=== PATIENT | female | born 1955 | race Two or more races ===

== ENCOUNTER 2018-10-19 21:19 | Inpatient (IN) | payer MEDICARE ==
[~2018-10-19] VITALS: Ht 160 cm; Wt 60.3 kg
[2018-10-19] MEDS ORDERED: LISI10TA5 PO (22:26)
[2018-10-19] MEDS ORDERED: BUPR300T54 PO (22:27)
[2018-10-19] MEDS ORDERED: MAGNESIUM HYDROXIDE 30 ML UDC PO PRN (22:30)
[2018-10-19] MEDS ORDERED: ESCI10TA PO (22:30)
[2018-10-19] MEDS ORDERED: ACETAMINOPHEN 325 MG TABLET PO PRN (22:30)
[2018-10-19] MEDS ORDERED: MAG HYDROX/AL HYDROX/SIMETH 30 ML UDC PO PRN (22:30)
[2018-10-19] MEDS ORDERED: AMPH30CA10 PO (22:31)
[2018-10-19] MEDS ORDERED: LORA-259 PO (22:32)
[2018-10-19] MEDS: LORAZEPAM 0.5 MG TABLET PO PRN (23:08)
--- NOTE | 2018-10-19 23:38 | NUR ---
ADMITTED THIS 63 YEARS OLD MALE FROM [facility] PATIENT IS VOLUNTARY CAME FOR SUICIDAL THOUGHT LIVES IN [place] PATIENT SIGN ALL THE CONSENT PAPER, PATIENT IS ALERT, ORIENTED X 4 AMBULATORY TO BATHROOM, DENIES ANY SI/HI AT THIS TIME, PATIENT "STATED SHE DOES NOT WANT ANY VISITOR ,SHE DOES NOT WANT ANY PHONE CALL FROM ANY BODY" PLEASE DON,T GIVE ANY INFORMATION TO ANY BODY WILL ENDORSE TO THE ONCOMING NURSE FOR CONTINUES OF CARE.
[2018-10-20] MEDS: ZOLPIDEM TARTRATE 5 MG TABLET PO PRN (00:46)
[2018-10-20 08:00] VITALS: BP 137/67
[2018-10-20 08:27] LABS: BASOPHILS % (AUTO) 0.6 % (0.0-2.0); EOSINOPHILS % (AUTO) 2.9 % (0.0-6.0); HEMATOCRIT 33 % (33-45); LYMPHOCYTES # (AUTO) 1.5 /CMM (0.8-4.8); LYMPHOCYTES % (AUTO) 29.3 % (20.0-44.0); MEAN CORPUSCULAR HGB CONC 33 g/dl (31.0-36.0); MEAN CORPUSCULAR VOLUME 86 fL (82-100); MONOCYTES # (AUTO) 0.4 /CMM (0.1-1.30); MONOCYTES % (AUTO) 8.6 % (2.0-12.0); NEUTROPHILS # (AUTO) 2.9 /CMM (1.8-8.9); NEUTROPHILS % (AUTO) 58.6 % (43.0-81.0); PLATELET COUNT (AUTO) 169 /CMM (150-450); RED BLOOD CELL COUNT(AUTO) 3.84 MIL/uL (4.0-5.2)
[2018-10-20 08:34] LABS: BILIRUBIN,TOTAL 0.5 mg/dL (0.2-1.0); CALCIUM, SERUM 8.1 mg/dL (8.5-10.1); CREATININE 1.5 mg/dL (0.6-1.3); TOTAL PROTEIN, SERUM 5.2 g/dL (6.4-8.2)
[2018-10-20] MEDS: CEPHALEXIN MONOHYDRATE 500 MG CAPSULE PO SCH ×2 (09:58→21:05)
[2018-10-20] MEDS: LORAZEPAM 0.5 MG TABLET PO PRN ×2 (09:59→21:29)
[2018-10-20] MEDS: LISINOPRIL (10MG) 10 MG TABLET PO SCH (10:00)
[2018-10-20] MEDS: BUPROPION XL 150 MG TAB.ER.24 PO SCH (13:00)
--- NOTE | 2018-10-20 13:44 | NUR ---
Initial Discharge Plan: Pt stated that she is currently homeless. Pt stated that she would like placement options to be presented to her. Pt did not seem content with a penitentiary facility placement so SW will also provide independent living options. SW will work with both the pt and the MD regarding appropriate discharge planning. SW will form a safe and proper discharge.
--- NOTE | 2018-10-20 13:45 | NUR ---
Pt stated that she did not want her sister, Briana ([phone]), who was listed on her face sheet to be contacted due to the lack of involvement in her life.
[2018-10-20 16:00] VITALS: BP 143/79
[2018-10-20 18:09] LABS: APPEARANCE,URINE SL CLOUDY (CLEAR); BILIRUBIN,URINE NEGATIVE (NEGATIVE); BLOOD, URINE NEGATIVE Ery/uL (NEGATIVE); COLOR,URINE YELLOW (YELLOW); KETONES,URINE NEGATIVE (NEGATIVE); LEUKOCYTE ESTERASE ,URINE 2+ (NEGATIVE); NITRITE, URINE POSITIVE (NEGATIVE); PROTEIN,URINE NEGATIVE (NEGATIVE); UGLUCOSE NEGATIVE (NEGATIVE); UROBILINOGEN,URINE 0.2 EU/dL (0.2)
[2018-10-20 18:30] LABS: BACTERIA,URINE Many /HPF (None Seen); RBC,URINE 0-2 /HPF (0-2); SQUAMOUS EPITHELIAL CELL,UR Few /HPF (None Seen); WBC,URINE 21-50 /HPF (0-3)
[2018-10-20 20:00] VITALS: BP 157/77
[2018-10-21 08:00] VITALS: BP 122/67
[2018-10-21] MEDS: ARIPIPRAZOLE 2 MG TABLET PO SCH (08:51)
[2018-10-21] MEDS: LISINOPRIL (10MG) 10 MG TABLET PO SCH (08:51)
[2018-10-21] MEDS: BUPROPION XL 150 MG TAB.ER.24 PO SCH (08:51)
[2018-10-21] MEDS: CEPHALEXIN MONOHYDRATE 500 MG CAPSULE PO SCH ×2 (08:51→21:58)
[2018-10-21] MEDS: LORAZEPAM 0.5 MG TABLET PO PRN (11:02)
[2018-10-21 16:00] VITALS: BP 134/64
[2018-10-21] MEDS: hydrOXYzine PAMOATE 25 MG CAPSULE PO PRN (18:35)
[2018-10-21 20:00] VITALS: BP 150/81
[2018-10-21] MEDS: ZOLPIDEM TARTRATE 5 MG TABLET PO PRN (21:58)
[2018-10-22 07:30] LABS: BASOPHILS % (AUTO) 0.5 % (0.0-2.0); EOSINOPHILS % (AUTO) 3.3 % (0.0-6.0); HEMATOCRIT 35 % (33-45); LYMPHOCYTES # (AUTO) 1.4 /CMM (0.8-4.8); LYMPHOCYTES % (AUTO) 24.5 % (20.0-44.0); MEAN CORPUSCULAR HGB CONC 34 g/dl (31.0-36.0); MEAN CORPUSCULAR VOLUME 85 fL (82-100); MONOCYTES # (AUTO) 0.4 /CMM (0.1-1.30); NEUTROPHILS # (AUTO) 3.5 /CMM (1.8-8.9); NEUTROPHILS % (AUTO) 63.7 % (43.0-81.0); PLATELET COUNT (AUTO) 176 /CMM (150-450); RED BLOOD CELL COUNT(AUTO) 4.11 MIL/uL (4.0-5.2); WHITE BLOOD COUNT (AUTO) 5.5 K/uL (4.3-11.0)
[2018-10-22 07:40] LABS: CALCIUM, SERUM 8.7 mg/dL (8.5-10.1); CREATININE 1.4 mg/dL (0.6-1.3); MAGNESIUM 1.6 mg/dL (1.8-2.4); PHOSPHORUS 3.4 mg/dL (2.5-4.9); POTASSIUM 4.2 mmol/L (3.5-5.1)
[2018-10-22 08:00] VITALS: BP 133/72
[2018-10-22] MEDS: BUPROPION XL 150 MG TAB.ER.24 PO SCH (08:33)
[2018-10-22] MEDS: ARIPIPRAZOLE 2 MG TABLET PO SCH (08:33)
[2018-10-22] MEDS: CEPHALEXIN MONOHYDRATE 500 MG CAPSULE PO SCH ×2 (08:33→20:34)
[2018-10-22] MEDS: LISINOPRIL (10MG) 10 MG TABLET PO SCH (08:34)
[2018-10-22] MEDS ORDERED: MAGNESIUM OXIDE 400 MG TABLET PO ONE (09:30)
[2018-10-22] MEDS: hydrOXYzine PAMOATE 25 MG CAPSULE PO PRN ×2 (12:16→20:34)
[2018-10-22 16:00] VITALS: BP 131/71
[2018-10-22] MEDS: LORAZEPAM 0.5 MG TABLET PO PRN (18:33)
[2018-10-22 20:00] VITALS: BP 148/69
[2018-10-22] MEDS: ZOLPIDEM TARTRATE 5 MG TABLET PO PRN (21:37)
[2018-10-23] MEDS: hydrOXYzine PAMOATE 25 MG CAPSULE PO PRN ×3 (04:47→17:31)
[2018-10-23 08:00] VITALS: BP 145/93
[2018-10-23] MEDS: CEPHALEXIN MONOHYDRATE 500 MG CAPSULE PO SCH ×2 (09:17→20:57)
[2018-10-23] MEDS: BUPROPION XL 150 MG TAB.ER.24 PO SCH (09:17)
[2018-10-23] MEDS: LORAZEPAM 0.5 MG TABLET PO PRN ×2 (09:19→22:06)
[2018-10-23] MEDS: ARIPIPRAZOLE 2 MG TABLET PO SCH (09:19)
[2018-10-23] MEDS: LISINOPRIL (10MG) 10 MG TABLET PO SCH (09:20)
--- NOTE | 2018-10-23 13:00 | NUR ---
GPS RN INITIAL NOTES Received report at bedside from Registry Nurse. Will continue to monitor and assess patient for safety and behavior.
[2018-10-23 16:00] VITALS: BP 148/72
[2018-10-23 20:00] VITALS: BP 153/78
[2018-10-23] MEDS: ZOLPIDEM TARTRATE 5 MG TABLET PO PRN (21:25)
[2018-10-24] MEDS: hydrOXYzine PAMOATE 25 MG CAPSULE PO PRN ×3 (01:44→23:07)
[2018-10-24 08:00] VITALS: BP 138/76
[2018-10-24] MEDS: BUPROPION XL 150 MG TAB.ER.24 PO SCH (08:46)
[2018-10-24] MEDS: CEPHALEXIN MONOHYDRATE 500 MG CAPSULE PO SCH (08:47)
[2018-10-24] MEDS: LISINOPRIL (10MG) 10 MG TABLET PO SCH (08:47)
[2018-10-24] MEDS: ARIPIPRAZOLE 2 MG TABLET PO SCH (08:47)
[2018-10-24] MEDS: LORAZEPAM 0.5 MG TABLET PO PRN ×2 (09:47→21:48)
--- NOTE | 2018-10-24 09:47 | NUR ---
GPS RN NOTE: PATIENT C/O ANXIETY M/B VERBALIZATION OF ANXIETY, PANIC ATTACK, AGITATION, CRYING AND REQUESTING TO HAVE HER ATIVAN. ATIVAN GIVEN ORDERED. WILL CONTINUE TO MONITOR [id number] OFRSAFETY
--- NOTE | 2018-10-24 13:00 | NUR ---
GPS RN NOTE: LABS SEEN BY DR. BRUMFIELD WITH ORDER TO ENCOURAGE FLUID TO PATIENT NOTED AND CARRIED OUT. WILL CONTINUE TO MONITOR [id number] OFRSAFETY
[2018-10-24 16:00] VITALS: BP 121/70
[2018-10-24] MEDS ORDERED: FOSFOMYCIN TROMETHAMINE 3 G/PKT PACKET PO ONE (16:00)
--- NOTE | 2018-10-24 19:30 | NUR ---
GPS RN NOTE, RECEIVED PATIENT AWAKE AND IN ROOM NO S/S OR COMPLAINTS OF PAIN AT THIS TIME. PATIENT IS DISPLAYING NO S/S OF APPARENT DISTRESS AT THIS TIME. PATIENT BREATHING IS UNLABORED WITH EQUAL RISE AND FALL OF THE CHEST. PATIENT IS ALERT AND ORIENTED X 3 ON ROOM AIR WITH A SPO2 OF 97%. PATIENT IS MED COMPLIANT, DISORGANIZED, ANXIOUS, COOPERATIVE, AND NEEDS REORIENTATION. PATIENT DENIES SUICIDE AND HOMICIDAL IDEATIONS AT THIS TIME. PATIENT ASSISTED WITH TURNING AND REPOSITIONING Q2HR AND PRN FOR COMFORT AND CIRCULATION. PATIENT HAS NO NEEDS AT THIS TIME. PATIENT EDUCATED ON THE USE OF THE CALL MEDINA. PATIENT BED SIDE RAILS ARE UP X 2 FOR SAFETY, BED IS LOCKED AND LOW. WILL CONTINUE TO MONITOR AND MAINTAIN SAFETY Q15 MIN WITH THE HELP OF STAFF.
[2018-10-24 19:56] VITALS: BP 129/64
--- NOTE | 2018-10-24 21:48 | NUR ---
GPS RN NOTE, PATIENT HAS A COMPLAINT OF FEELING ANXIOUS AND IS REQUESTING ATIVAN AT THIS TIME. PATIENT VITAL SIGNS ARE STABLE. GAVE ATIVAN 1MG PO Q12HR PRN ORDERED. WILL REASSESS FOR ANXIETY AND I WILL CONTINUE TO MONITOR THIS PATIENT.
[2018-10-24] MEDS ORDERED: HYDR-3026 PO (22:19)
--- NOTE | 2018-10-24 23:07 | NUR ---
GPS RN NOTE, PATIENT HAS A COMPLAINT OF FEELING ITCHY AND IS REQUESTING VISTARIL AT THIS TIME. PATIENT VITAL SIGNS ARE STABLE. GAVE VISTARIL 50 MG PO Q8HR PRN ORDERED. WILL REASSESS PATIENT AND I WILL CONTINUE TO MONITOR THIS PATIENT.
[2018-10-24] MEDS: ZOLPIDEM TARTRATE 5 MG TABLET PO PRN (23:51)
--- NOTE | 2018-10-24 23:52 | NUR ---
GPS RN NOTE, PATIENT HAS A COMPLAINT OF NOT BEING ABLE TO SLEEP AND IS REQUESTING AMBIEN AT THIS TIME. PATIENT VITAL SIGNS ARE STABLE. GAVE AMBIEN 5MG PO HS PRN ORDERED. WILL REASSESS FOR INSOMNIA AND I WILL CONTINUE TO MONITOR THIS PATIENT.
[2018-10-25 08:00] VITALS: BP 116/58
[2018-10-25] MEDS: LISINOPRIL (10MG) 10 MG TABLET PO SCH (09:00)
[2018-10-25] MEDS: ARIPIPRAZOLE 5 MG TABLET PO SCH (09:09)
[2018-10-25] MEDS: BUPROPION XL 150 MG TAB.ER.24 PO SCH (09:09)
[2018-10-25] MEDS: hydrOXYzine PAMOATE 25 MG CAPSULE PO PRN ×2 (09:19→18:12)
[2018-10-25] MEDS: LORAZEPAM 0.5 MG TABLET PO PRN ×2 (10:48→23:24)
[2018-10-25 16:00] VITALS: BP 140/62
--- NOTE | 2018-10-25 16:33 | NUR ---
JATINDER called the pt's mother, Kanika ([phone]), and informed her about the discharge plan for the pt to be in a SNF temporarily until she receives her check for November and can arrange a different living situation.
--- NOTE | 2018-10-25 18:13 | NUR ---
MED. FOR ITCHING WITH VISTARIL.
[2018-10-25 20:18] VITALS: BP 156/79
[2018-10-25] MEDS: ZOLPIDEM TARTRATE 5 MG TABLET PO PRN ×2 (21:42→21:43)
[2018-10-26] MEDS: hydrOXYzine PAMOATE 25 MG CAPSULE PO PRN ×3 (02:17→18:51)
[2018-10-26 08:00] VITALS: BP 128/64
[2018-10-26] MEDS: BUPROPION XL 150 MG TAB.ER.24 PO SCH (09:26)
[2018-10-26] MEDS: ARIPIPRAZOLE 5 MG TABLET PO SCH (09:26)
[2018-10-26] MEDS: LISINOPRIL (10MG) 10 MG TABLET PO SCH (09:27)
--- NOTE | 2018-10-26 10:39 | NUR ---
MEDICATED FOR ITCHING WITH VISTARIL 50 MG.
--- NOTE | 2018-10-26 13:01 | NUR ---
JATINDER faxed a referral to the Kaushal, Industrial Therapist of [facility], to the fax number: [phone].
--- NOTE | 2018-10-26 13:01 | NUR ---
SALVADOR ([phone]) from [facility] contacted the and stated that the pt no longer has any Medicare days available and therefore the facility cannot accept him.
[2018-10-26] MEDS: LORAZEPAM 0.5 MG TABLET PO PRN (13:30)
--- NOTE | 2018-10-26 13:35 | NUR ---
GIVEN 1 MG ATIVAN PER PRN ORDER.PT. STATES NERVOUS.
[2018-10-26 16:00] VITALS: BP 134/68
--- NOTE | 2018-10-26 19:03 | NUR ---
just medicated again with vistaril for itching.
[2018-10-26 20:42] VITALS: BP 148/75
[2018-10-26] MEDS: ZOLPIDEM TARTRATE 5 MG TABLET PO PRN (21:33)
[2018-10-27] MEDS: LORAZEPAM 0.5 MG TABLET PO PRN ×2 (01:13→13:31)
[2018-10-27 08:00] VITALS: BP 124/67
[2018-10-27] MEDS: ARIPIPRAZOLE 5 MG TABLET PO SCH (08:21)
[2018-10-27] MEDS: BUPROPION XL 150 MG TAB.ER.24 PO SCH (08:22)
[2018-10-27] MEDS: LISINOPRIL (10MG) 10 MG TABLET PO SCH (08:23)
[2018-10-27] MEDS: hydrOXYzine PAMOATE 25 MG CAPSULE PO PRN ×2 (08:54→18:10)
--- NOTE | 2018-10-27 13:33 | NUR ---
RN NOTE: PRN ATIVAN 1G GIVEN FOR ANXIETY. STATES THAT SHE IS FEELING ANXIOUS. WILL RE-ASSESS ANXIETY.
[2018-10-27 16:00] VITALS: BP 124/71
--- NOTE | 2018-10-27 18:35 | NUR ---
RN NOTE: Visatril 50mg PO was given PRN for itching @ 0854 & 1810. Both times, medication was effective and patient had no more complaints of bodily itching. Continue to monitor patient for itch.
[2018-10-27 20:00] VITALS: BP 139/67
[2018-10-27] MEDS: ZOLPIDEM TARTRATE 5 MG TABLET PO PRN (21:04)
[2018-10-28] MEDS: LORAZEPAM 0.5 MG TABLET PO PRN ×2 (03:43→16:04)
--- NOTE | 2018-10-28 03:44 | NUR ---
FEELING ANXIOUS, REQUESTING FOR ATIVAN, 1 MG PO GIVEN.
[2018-10-28 08:00] VITALS: BP 120/67
[2018-10-28] MEDS: ARIPIPRAZOLE 5 MG TABLET PO SCH (08:24)
[2018-10-28] MEDS: LISINOPRIL (10MG) 10 MG TABLET PO SCH (08:25)
[2018-10-28] MEDS: BUPROPION XL 150 MG TAB.ER.24 PO SCH (08:25)
[2018-10-28] MEDS: hydrOXYzine PAMOATE 25 MG CAPSULE PO PRN ×2 (08:44→21:45)
--- NOTE | 2018-10-28 14:04 | NUR ---
SALVADOR ([phone]) from [facility] contacted the SW and stated that they are willing to accept the pt. SW informed him that the discharge is set for Wednesday.
--- NOTE | 2018-10-28 14:05 | NUR ---
JATINDER called the pt's mother, Kanika ([phone]), and informed her that the pt is going to be discharged to [facility] on Wednesday.
--- NOTE | 2018-10-28 15:26 | NUR ---
SW provided the pt with homeless resources and the pt signed the homeless waiver.
[2018-10-28 16:18] VITALS: BP 125/70
[2018-10-28 20:00] VITALS: BP 113/51
[2018-10-28] MEDS: ZOLPIDEM TARTRATE 5 MG TABLET PO PRN (22:27)
[2018-10-29] MEDS: LORAZEPAM 0.5 MG TABLET PO PRN ×2 (04:47→17:08)
[2018-10-29 08:00] VITALS: BP 119/64
[2018-10-29] MEDS: BUPROPION XL 150 MG TAB.ER.24 PO SCH (08:45)
[2018-10-29] MEDS: LISINOPRIL (10MG) 10 MG TABLET PO SCH (08:46)
[2018-10-29] MEDS: ARIPIPRAZOLE 5 MG TABLET PO SCH (08:46)
[2018-10-29] MEDS: hydrOXYzine PAMOATE 25 MG CAPSULE PO PRN ×2 (11:41→20:46)
[2018-10-29 16:00] VITALS: BP 116/55
[2018-10-29 20:00] VITALS: BP 125/59
[2018-10-30] MEDS: ZOLPIDEM TARTRATE 5 MG TABLET PO PRN ×2 (01:59→21:33)
[2018-10-30] MEDS: LORAZEPAM 0.5 MG TABLET PO PRN ×2 (06:39→18:48)
[2018-10-30 08:00] VITALS: BP 129/72
[2018-10-30] MEDS: LISINOPRIL (10MG) 10 MG TABLET PO SCH (08:15)
[2018-10-30] MEDS: ARIPIPRAZOLE 5 MG TABLET PO SCH (08:15)
[2018-10-30] MEDS: BUPROPION XL 150 MG TAB.ER.24 PO SCH (08:15)
[2018-10-30] MEDS: hydrOXYzine PAMOATE 25 MG CAPSULE PO PRN ×2 (13:03→21:33)
--- NOTE | 2018-10-30 13:03 | NUR ---
RN NOTE: Visatril 50mg PO was given PRN for itching Continue to monitor patient for itch.
[2018-10-30 16:00] VITALS: BP 123/66
--- NOTE | 2018-10-30 18:48 | NUR ---
RN NOTE: PRN ATIVAN 1MG GIVEN FOR ANXIETY. STATES THAT SHE IS FEELING ANXIOUS.
[2018-10-30 20:03] VITALS: BP 126/63
[2018-10-30] MEDS: MICONAZOLE NITRATE 2% CREAM 1 EA TUBE TP SCH (20:16)
[2018-10-31] MEDS: LORAZEPAM 0.5 MG TABLET PO PRN ×2 (06:48→18:59)
[2018-10-31 08:00] VITALS: BP 118/74
[2018-10-31] MEDS: BUPROPION XL 150 MG TAB.ER.24 PO SCH (08:39)
[2018-10-31] MEDS: LISINOPRIL (10MG) 10 MG TABLET PO SCH (08:39)
[2018-10-31] MEDS: ARIPIPRAZOLE 5 MG TABLET PO SCH (08:39)
[2018-10-31] MEDS: hydrOXYzine PAMOATE 25 MG CAPSULE PO PRN (11:14)
--- NOTE | 2018-10-31 15:29 | NUR ---
insulation worker furnace installer received call from [facility] on Wednesday notifying social workers that there are currently no beds available until tomorrow November 01. insulation worker furnace installer reached out to pts mother mother, Kanika ([phone]), and informed her that the pt is going to be discharged to on November 01 at 2:00pm. insulation worker furnace installer reached out to ambulance and updated date and time, nursing staff aware.
[2018-10-31 16:00] VITALS: BP 123/63
[2018-10-31 20:29] VITALS: BP 117/77
[2018-10-31] MEDS: MICONAZOLE NITRATE 2% CREAM 1 EA TUBE TP SCH (20:42)
[2018-10-31] MEDS: ZOLPIDEM TARTRATE 5 MG TABLET PO PRN (21:55)
--- NOTE | 2018-10-31 21:55 | NUR ---
RN NOTES, PATIENT COMPLAINING OF INABILITY TO SLEEPING AND REQUESTING AMBIEN, AMBIEN ADMINISTERED ORDERED, WILL CONTINUE TO MONITOR CLOSELY.
[2018-11-01] MEDS: hydrOXYzine PAMOATE 25 MG CAPSULE PO PRN ×2 (04:14→13:03)
[2018-11-01 08:00] VITALS: BP 114/68
[2018-11-01] MEDS: BUPROPION XL 150 MG TAB.ER.24 PO SCH (08:12)
[2018-11-01] MEDS: ARIPIPRAZOLE 5 MG TABLET PO SCH (08:12)
[2018-11-01] MEDS: LORAZEPAM 0.5 MG TABLET PO PRN (08:12)
--- NOTE | 2018-11-01 08:12 | NUR ---
medicated for nervousness with ativan.
[2018-11-01 08:13] VITALS: BP_SYST 114
[2018-11-01] MEDS: LISINOPRIL (10MG) 10 MG TABLET PO SCH (08:13)
--- NOTE | 2018-11-01 13:03 | NUR ---
given vistaril for itching.
--- NOTE | 2018-11-01 14:18 | NUR ---
discharged to facility,denies suicidal or homicidal ideation.
--- NOTE | 2018-11-01 14:19 | NUR ---
report called to anupam garvey at facility.ambulance drivers given report.belonging sheet signed along with other sheets.taken via amb. to facility.
--- NOTE | 2018-11-01 15:37 | NUR ---
JATINDER called the pts mother, Kanika ([phone]), and notified her of the placement location and informed her that the pt was discharged today.
--- NOTE | 2018-11-01 15:38 | NUR ---
Initial Discharge Plan: Pt was discharged to [facility] located at [address] [place] [address] ([phone]). Pt was transported via [facility] (Trip #[id number]) at 2PM. Pts mother, Kanika ([phone]), was notified of the placement. Upon discharge, the pt appeared to be in a euthymic mood and presented with a pleasant and calm affect. Pt denied both suicidal and homicidal ideation as well as auditory and visual hallucinations. Pt stated that she felt much better and was content about being admitted to the hospital even though she never wants to come back. Pt signed the homeless checklist at the time of discharge and was provided with homeless senior living referrals as well. Pt will be under the care of psychiatrist, Dr. Buckner, [place] at [address] [place] [address]; and her oval or circular glass cutter, Dr. Rios, located at [address] [place] [address]; .
[2018-11-01 16:00] VITALS: BP 114/59
== END 2018-11-01 14:20 | DRG 885 ==
LOC: GPS 21:19
PROVIDERS: ADMIT Psychiatry & Neurology Psychiatry; ATTEND Nurse Practitioner Acute Care
DX: F33.3 Major depressive disorder, recurrent, severe with psychotic symptoms (principal); N17.0 Acute kidney failure with tubular necrosis; B95.2 Enterococcus as the cause of diseases classified elsewhere; N39.0 Urinary tract infection, site not specified; R45.851 Suicidal ideations; E44.0 Moderate protein-calorie malnutrition; Z88.0 Allergy status to penicillin; I10 Essential (primary) hypertension; F90.9 Attention-deficit hyperactivity disorder, unspecified type; Z59.0 Homelessness; E88.09 Other disorders of plasma-protein metabolism, not elsewhere classified; Z68.23 Body mass index [BMI] 23.0-23.9, adult; E83.42 Hypomagnesemia; B37.9 Candidiasis, unspecified
CPT/HCPCS: 36415; 80048-TC; 80053-TC; 80061-TC; 80305; 81000-TC; 83735-TC; 84100-TC; 85025-TC; 87081-TC; 87086-TC; 87186-TC; Q0177

== ENCOUNTER 2019-01-11 22:51 | Inpatient (IN) | payer MEDICARE, MEDICAID ==
[~2019-01-11] VITALS: Ht 162.6 cm; Wt 69.4 kg
[~2019-01-11 22:51] MED LIST: AMPH30CA10 PO; BUPR300T54 PO; ESCI10TA PO; HYDR-3026 PO; LISI10TA5 PO; LORA-259 PO
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
[2019-01-11 23:30] LABS: BASOPHILS % (AUTO) 0.6 % (0.0-2.0); EOSINOPHILS % (AUTO) 2.7 % (0.0-6.0); HEMATOCRIT 34 % (33-45); HEMOGLOBIN 11.4 g/dL (11.5-14.8); LYMPHOCYTES % (AUTO) 24.4 % (20.0-44.0); MEAN CORPUSCULAR HGB CONC 34 g/dl (31.0-36.0); MEAN CORPUSCULAR VOLUME 87 fL (82-100); NEUTROPHILS % (AUTO) 62.3 % (43.0-81.0); PLATELET COUNT (AUTO) 191 /CMM (150-450); WHITE BLOOD COUNT (AUTO) 7.9 K/uL (4.3-11.0)
[2019-01-11 23:31] LABS: BASOPHILS # (AUTO) 0.1 /CMM (0.0-0.2); LYMPHOCYTES # (AUTO) 1.9 /CMM (0.8-4.8); MONOCYTES # (AUTO) 0.8 /CMM (0.1-1.30); NEUTROPHILS # (AUTO) 4.9 /CMM (1.8-8.9)
[2019-01-11 23:37] LABS: CALCIUM, SERUM 8.1 mg/dL (8.5-10.1); CREATININE 1.6 mg/dL (0.6-1.3); POTASSIUM 4.1 mmol/L (3.5-5.1)
[2019-01-11 23:48] LABS: ALBUMIN 3.3 g/dL (3.4-5.0); BILIRUBIN,DIRECT 0.1 mg/dL (0.0-0.2); BILIRUBIN,TOTAL 0.3 mg/dL (0.2-1.0)
[2019-01-11] MEDS ORDERED: MORPHINE SULFATE INJ 2 MG/ML DISP.SYRIN ONE (23:50)
[2019-01-11] MEDS ORDERED: ONDANSETRON HCL/PF 4 MG/2 ML VIAL ONE (23:50)
[2019-01-12] MEDS ORDERED: ONDANSETRON HCL/PF - ER 4 MG/2 ML VIAL IV ONE
[2019-01-12] MEDS ORDERED: MORPHINE SULFATE INJ 2 MG/ML DISP.SYRIN IV ONE
--- NOTE | 2019-01-12 00:05 | NUR ---
URINE COLLECTED AND SENT TO LAB
[2019-01-12 00:08] LABS: APPEARANCE,URINE Clear (CLEAR); BILIRUBIN,URINE Negative (NEGATIVE); BLOOD, URINE Negative Ery/uL (NEGATIVE); COLOR,URINE Yellow (YELLOW); KETONES,URINE Negative (NEGATIVE); LEUKOCYTE ESTERASE ,URINE Small (NEGATIVE); NITRITE, URINE Negative (NEGATIVE); PH,URINE 5.5 (5.0-8.0); PROTEIN,URINE Negative (NEGATIVE); UGLUCOSE Negative (NEGATIVE); UROBILINOGEN,URINE 0.2 EU/dL (0.2)
--- NOTE | 2019-01-12 00:14 | NUR ---
CALLED RADIOLOGY FOR CT, PT IS READY
[2019-01-12 00:29] LABS: BACTERIA,URINE Few /HPF (None Seen); RBC,URINE 0-2 /HPF (0-2); SQUAMOUS EPITHELIAL CELL,UR Few /HPF (None Seen); WBC,URINE 21-50 /HPF (0-3)
--- NOTE | 2019-01-12 01:01 | NUR ---
PT REPORTED HAVING PAIN AGAIN. MD AWARE. HOLD PAIN MED FOR NOW.
[2019-01-12] MEDS ORDERED: MEROPENEM 500 MG VIAL IV ONE (01:55)
[2019-01-12] MEDS ORDERED: HYDROMORPHONE 1 MG/1 ML DISP.SYRIN ONE (01:55)
[2019-01-12] MEDS ORDERED: MEROPENEM 500 MG in IV NS 0.9% 50 ML IV ONE (02:00)
[2019-01-12] MEDS ORDERED: IV NS 0.9% 1,000 ML BAG IV ONE (02:00)
[2019-01-12] MEDS ORDERED: HYDROMORPHONE INJ 0.5 MG/0.5 ML SYRINGE IV ONE (02:00)
--- NOTE | 2019-01-12 02:18 | NUR ---
CALLED [facility] FOR PANEL ADMISSION. WAITING FOR MOTOR ASSEMBLER RODRIGUEZ TO BACK.
--- NOTE | 2019-01-12 02:39 | NUR ---
CALLED RN SUP FOR MS BED
--- NOTE | 2019-01-12 02:51 | NUR ---
PT ASSIGNED TO [facility] [id number]
[2019-01-12] MEDS ORDERED: MAGNESIUM HYDROXIDE 30 ML UDC PO PRN (03:00)
[2019-01-12] MEDS ORDERED: MAG HYDROX/AL HYDROX/SIMETH 30 ML UDC PO PRN (03:00)
[2019-01-12] MEDS ORDERED: ACETAMINOPHEN 325 MG TABLET PO PRN (03:00)
[2019-01-12] MEDS ORDERED: HYDROCODONE/APAP 5/325MG 1 EACH TABLET PO PRN (03:00)
[2019-01-12] MEDS ORDERED: Z GUARD REMEDY 2 OZ OINT TP PRN (03:00)
[2019-01-12] MEDS ORDERED: ONDANSETRON HCL/PF 4 MG/2 ML VIAL IVP PRN (03:00)
[2019-01-12] MEDS ORDERED: MEROPENEM 500 MG in IV NS 0.9% 50 ML IV SCH (03:00)
[2019-01-12] MEDS ORDERED: MORPHINE SULFATE INJ 2 MG/ML DISP.SYRIN IV PRN (03:00)
--- NOTE | 2019-01-12 03:02 | NUR ---
REPORT GIVEN TO COOPER BLACKWELL FOR YONG. PT GOING TO 304-2
--- NOTE | 2019-01-12 03:25 | NUR ---
PT BEING TRANSPORTED TO UNIT WITH EMT AT BEDSIDE ON WHEELCHAIR. NAD NOTED UPON TRANSFER. PT IN STABLE CONDITION
[2019-01-12 03:30] VITALS: BP 100/55
--- NOTE | 2019-01-12 03:30 | NUR ---
MS RESEARCH AND DEVELOPMENT TESTER INITIAL NOTES ADMIT PT FROM ER VIA JOEL ACCOMPANIED BY ER NURSE . DX OF PYELONEPHRITIS. PT IS AWAKE AND ALERT, AMBULATORY. ORIENTED WHERE SHE AT AND HOW TO USED THE CALL LIGHT SYSTEM. DENIES ANY N/V BUT COMPLAINING OF PAIN ON HER RIGHT LOWER BACK .NO SIGNS OF ANY DISTRESS NOTED. SKIN WARM AND DRY TOUCH. VITAL SIGNS WITHIN NORMAL LIMIT. OFFERED SOME SNACKS OR DRINKS BUT SHE ONLY REQUESTED HAVE SOME WATER. ASSESSMENT DONE AND RECORDED. AND KEPT HER WARM AND COMFORTABLE AT ALL TIMES. WILL CONTINUE MONITORING. PLACE CALL LIGHT AT REACH.
[2019-01-12 03:48] VITALS: BP 100/55
[2019-01-12] MEDS: IV NS 0.9% 1,000 ML IV PRN (06:00)
--- NOTE | 2019-01-12 06:47 | NUR ---
MS RESIDENTIAL BUILDER CLOSING NOTES PT BACK TO SLEEP AFTER USED THE RESTROOM. NOT IN ANY DISTRESS NOTED. KEPT HER WARM AND COMFORTABLE AT ALL TIMES. IVF NS AT 75 ML/HR INFUSING ON HER LEFT AC GAUGE 20 . KEPT HER WARM AND COMFORTABLE AT ALL TIMES. PLACE CALL LIGHT AT REACH. ENDORSE TO AM NURSE FOR CONTINUITY OF CARE.
--- NOTE | 2019-01-12 07:34 | NUR ---
RN OPENING NOTE PT WAS RECEIVED IN BED AT LOWEST AND LOCKED POSITION WITH SIDE RAILS UP X2, A/O X4 BREATHING EVEN AND UNLABORED ON RA, NO CURRENT COMPLAINTS OF DISTRESS OR PAIN NOTED, IV IS PATENT AND INTACT WITH IVF RUNNING, SAFETY PRECAUTIONS IN PLACE, CALL LIGHT WITHIN REACH, WILL MONITOR PT ACCORDINGLY
[2019-01-12] MEDS ORDERED: BISA10SU11 RC (07:48)
[2019-01-12] MEDS ORDERED: HYDR50CA PO (07:48)
[2019-01-12] MEDS ORDERED: ARIP5TAB10 PO (07:48)
[2019-01-12] MEDS ORDERED: MAGN400O6 PO (07:48)
[2019-01-12] MEDS ORDERED: NA P133E RC (07:48)
[2019-01-12] MEDS ORDERED: ACET-868 PO (07:48)
[2019-01-12 08:00] VITALS: BP 97/49
[2019-01-12] MEDS ORDERED: HYDROMORPHONE INJ 0.5 MG/0.5 ML SYRINGE IV PRN (13:00)
[2019-01-12] MEDS: MEROPENEM 1 G in IV NS 0.9% 100 ML IV SCH (13:34)
[2019-01-12] MEDS: HYDROMORPHONE 1 MG/1 ML DISP.SYRIN IV PRN ×3 (14:17→22:39)
[2019-01-12 16:00] VITALS: BP 99/58
--- NOTE | 2019-01-12 18:14 | NUR ---
RN CLOSING NOTE PT IN BED AT LOWEST AND LOCKED POSITION WITH SIDE RAILS UP X2, A/O X4 BREATHING EVEN AND UNLABORED ON RA WITH NO CURRENT COMPLAINTS OF DISTRESS OR PAIN, IV IS PATENT AND INTACT WITH IVF RUNNING, PATIENT IS AMBULATORY MAKES NEEDS KNOWN, SAFETY PRECAUTIONS IN PLACE, CALL LIGHT WITHIN REACH, ALL NEEDS ATTENDED TO, WILL ENDORSE TO PROJECT ARCHITECT RN FOR YONG.
--- NOTE | 2019-01-12 19:44 | NUR ---
RN MS OPENING NOTES RECEIVED PATIENT IN BED AWAKE, ALERT AND ORIENTED X4, VERBALLY RESPONSIVE, ABLE TO MAKE NEEDS KNOWN. ON THE PHONE. BREATHING EVEN AND UNLABORED. NO SOB NOTED. TOLERATING ROOM AIR. CURRENTLY WITH NO COMPLAINTS OF PAIN OR DISCOMFORT. NO FACIAL GRIMACING. IV ON LEFT AC INTACT AND PATENT WITH IVF INFUSING. SKIN DRY AND WARM TO TOUCH. AFEBRILE. ALL OTHER NEEDS ATTENDED TO . SAFETY MEASURES IN PLACE. CALL LIGHT WITHIN REACH. WILL CONTINUE TO MONITOR.
[2019-01-12 20:00] VITALS: BP 111/64
[2019-01-13] MEDS: MEROPENEM 1 G in IV NS 0.9% 100 ML IV SCH ×2 (01:56→14:35)
[2019-01-13] MEDS: HYDROMORPHONE 1 MG/1 ML DISP.SYRIN IV PRN ×5 (03:13→20:47)
[2019-01-13 06:31] LABS: BASOPHILS % (AUTO) 0.6 % (0.0-2.0); HEMATOCRIT 36 % (33-45); HEMOGLOBIN 11.8 g/dL (11.5-14.8); LYMPHOCYTES # (AUTO) 1.2 /CMM (0.8-4.8); LYMPHOCYTES % (AUTO) 18.6 % (20.0-44.0); MEAN CORPUSCULAR HGB CONC 33 g/dl (31.0-36.0); MEAN CORPUSCULAR VOLUME 88 fL (82-100); MONOCYTES # (AUTO) 0.5 /CMM (0.1-1.30); MONOCYTES % (AUTO) 6.9 % (2.0-12.0); NEUTROPHILS # (AUTO) 4.6 /CMM (1.8-8.9); NEUTROPHILS % (AUTO) 70.9 % (43.0-81.0); PLATELET COUNT (AUTO) 202 /CMM (150-450); RED BLOOD CELL COUNT(AUTO) 4.07 MIL/uL (4.0-5.2); WHITE BLOOD COUNT (AUTO) 6.5 K/uL (4.3-11.0)
[2019-01-13 06:48] LABS: ALBUMIN 3.1 g/dL (3.4-5.0); BILIRUBIN,TOTAL 0.4 mg/dL (0.2-1.0); CALCIUM, SERUM 8.6 mg/dL (8.5-10.1); CREATININE 1.6 mg/dL (0.6-1.3); MAGNESIUM 1.8 mg/dL (1.8-2.4); PHOSPHORUS 3.7 mg/dL (2.5-4.9); POTASSIUM 5.1 mmol/L (3.5-5.1); TOTAL PROTEIN, SERUM 5.8 g/dL (6.4-8.2)
--- NOTE | 2019-01-13 06:49 | NUR ---
RN MS CLOSING NOTES PATIENT RESTING IN BED. NO ACUTE CHANGES THROUGHOUT SHIFT. NOT IN ANY DISTRESS. BREATHING EVEN AND UNLABORED. CURRENTLY WITH NO COMPLAINTS OF PAIN OR DISCOMFORT. NO FACIAL GRIMACING - PAIN MEDS GIVEN WHEN ASKED. IV ON LEFT AC INTACT AND PATENT WITH IVF INFUSING. SKIN DRY AND WARM TO TOUCH. AFEBRILE. ALL OTHER NEEDS ATTENDED TO . SAFETY MEASURES IN PLACE. CALL LIGHT WITHIN REACH. WILL ENDORSE TO ONCOMING NURSE FOR YONG.
[2019-01-13 06:50] LABS: THYROID STIMULATING HORMONE 1.639 uIU/mL (0.358-3.74)
[2019-01-13] MEDS: IV NS 0.9% 1,000 ML IV PRN (07:36)
--- NOTE | 2019-01-13 07:50 | NUR ---
M/S RN NOTES PATIENT AWAKE, LYING IN BED, ALERT AND ORIENT X4. NO RESPIRATORY DISTRESS NOTED. COMPLAINING OF RT FLANK PAIN, 8/10. PATIENT GIVEN DILAUDID PRESCRIBED. WILL REASSESS. SKIN WARM TO TOUCH. IVF OF NS RUNNING AT 75ML/HR ON THE LAC, INTACT AND PATENT, NO REDNESS, NO INFILTRATION NOTED. PATIENT'S NEEDS ATTENDED. BED ON LOWEST LOCKED POSITION, CALL LIGHT WITHIN REACH. WILL CONTINUE TO MONITOR.
[2019-01-13 08:00] VITALS: BP 138/63
[2019-01-13 16:00] VITALS: BP 145/78
--- NOTE | 2019-01-13 18:40 | NUR ---
M/S RN NOTES PATIENT AWAKE, LYING IN BED. ALERT AND ORIENTED X4. NO RESPIRATORY DISTRESS, PAIN TOLERABLE AT THIS TIME 10/19, RELIEVED BY DILAUDID. IV NS RUNNING AT 75ML/HR ON THE RFA #22G, INTACT AND PATENT. SKIN WARM TO TOUCH. PATIENT'S NEEDS ATTENDED, BED ON LOWEST LOCKED POSITION, CALL LIGHT WITHIN REACH. WILL ENDORSE TO ONCOMING NURSE.
--- NOTE | 2019-01-13 19:25 | NUR ---
RN OPENING NOTES RECEIVED PATIENT AWAKE, RESTING IN BED. A/O X 4. NO SIGNS OF RESPIRATORY DISTRESS, DENIES SOB. PATIENT COMPLAINS OF PAIN 4/10 AT THIS TIME. IV NS RUNNING AT 75 ML/HR ON RFA #22G, INTACT AND PATENT. SAFETY PRECAUTIONS IMPLEMENTED; CALL LIGHT WITHIN REACH, BED ON LOWEST POSITION, SIDE RAILS UP X2, HEAD OF BED UP. WILL CONTINUE TO MONITOR PATIENT.
[2019-01-13 20:00] VITALS: BP 142/73
--- NOTE | 2019-01-14 00:40 | NUR ---
MS RN NOTE RECEIVED [facility] REPORT FROM COOPER HUTCHINSON. PT IN STABLE CONDITION, A&O X4, ABLE TO MAKE NEEDS KNOWN. CURRENTLY IN BED ASLEEP, EASILY AROUSABLE WHEN NAME IS CALLED. NO SIGNS OF SOB OR DISTRESS, NO C/O PAIN. ALL CURRENT NEEDS ATTENDED TO. BED LOW, LOCKED, UPPER RAILS UP, AND CALL LIGHT WITHIN REACH. WILL CONT. TO MONITOR.
--- NOTE | 2019-01-14 00:53 | NUR ---
RN CLOSING NOTES PATIENT RESTING IN BED. NO ACUTE CHANGES THROUGHOUT MY SHIFT. NO SIGNS OF RESPIRATORY DISTRESS. DENIES SOB. CURRENTLY NO COMPLAINTS OF PAIN OR DISCOMFORT. IV ON LEFT AC INTACT AND PATENT WITH IVF INFUSING. SKIN DRY AND WARM TO TOUCH. AFEBRILE. ALL OTHER NEEDS ATTENDED TO AT THIS TIME. SSAFETY PRECAUTIONS IMPLEMENTED; CALL LIGHT WITHIN REACH, BED LOW, BED LOCKED, SIDE RAILS UP X2. ENDORSED CARE TO COOPER REILLY, FOR YONG.
[2019-01-14] MEDS: HYDROMORPHONE 1 MG/1 ML DISP.SYRIN IV PRN ×5 (01:24→19:27)
[2019-01-14] MEDS: MEROPENEM 1 G in IV NS 0.9% 100 ML IV SCH ×2 (01:24→14:17)
--- NOTE | 2019-01-14 01:24 | NUR ---
MS RN NOTE PRN DILAUDID IV GIVEN FOR FLANK PAIN 02/18. WILL CONT. TO MONITOR.
--- NOTE | 2019-01-14 05:39 | NUR ---
MS RN NOTE PRN DILAUDID 1 MG IV GIVEN FOR FLANK PAIN 03/21. WILL CONT. TO MONITOR.
--- NOTE | 2019-01-14 06:32 | NUR ---
MS RN NOTE PT IN STABLE CONDITION, A&O X4, ABLE TO MAKE NEEDS KNOWN. CURRENTLY IN BED ASLEEP, EASILY AROUSABLE WHEN NAME IS CALLED. NO SIGNS OF SOB OR DISTRESS, NO C/O PAIN. ALL CURRENT NEEDS ATTENDED TO. BED LOW, LOCKED, UPPER RAILS UP, AND CALL LIGHT WITHIN REACH. WILL CONT. TO MONITOR AND ENDORSE TO NEXT SHIFT FOR YONG.
[2019-01-14 06:36] LABS: CALCIUM, SERUM 9.4 mg/dL (8.5-10.1); CREATININE 1.3 mg/dL (0.6-1.3); POTASSIUM 5.2 mmol/L (3.5-5.1)
[2019-01-14 08:00] VITALS: BP 127/59
--- NOTE | 2019-01-14 11:45 | NUR ---
rt. arm iv infiltrated,restart in lt. forearm with gauge #22.
[2019-01-14] MEDS ORDERED: SODIUM POLYSTYRENE SULFONATE 15 G/60 ML BOTTLE PO ONE (12:00)
[2019-01-14] MEDS: LORAZEPAM INJ 2 MG/ML VIAL IV PRN ×2 (12:14→21:06)
[2019-01-14 16:00] VITALS: BP 138/81
--- NOTE | 2019-01-14 18:00 | NUR ---
inf. shravan lou and medical md in to see pt.med x1 with ativan and x2 for pain rt. kidney area
[2019-01-14 18:08] LABS: PTH, INTACT 54 pg/mL (15-65)
--- NOTE | 2019-01-14 19:05 | NUR ---
RN MS OPENING NOTES RECEIVED PATIENT IN BED AWAKE ALERT AND ORIENTED X4, RESPIRATIONS EVEN AND UNLABORED WITH EQUAL RISE AND FALL OF CHEST, C/O PAIN TO RIGHT BACK KIDNEY AREA. REQUESTING FOR PAIN MEDICATION, VS TAKEN WNL, IV SITE TO LEFT FA #22G INTACT AND PATENT, NO REDNESS, NO INFILTRATION PRESENT, IVF RUNNING ORDERED, ORIENTED TO STAFF AND CALL LIGHT AND KEPT WITHIN REACH, SAFETY PRECAUTIONS IN PLACE, LOW BED AND LOCKED, FLUIDS OFFERED ALL NEEDS ATTENDED AT THIS TIME WILL CONTINUE TO MONITOR FOR EFFECTIVENESS AND ATTEND TO NEEDS.
--- NOTE | 2019-01-14 19:30 | NUR ---
rn ms notes patient complaint of pain to right back/kidney area requesting for pain medication dilaudid. vs wnl 116/68,83,18, no sob prn dilaudid given as ordered will continue to monitor for effectiveness.
[2019-01-14 20:00] VITALS: BP 116/68
[2019-01-14] MEDS ORDERED: CEFAZOLIN 500 MG VIAL IM SCH (21:00)
--- NOTE | 2019-01-14 21:06 | NUR ---
RN MS NOTES PATIENT STATES FEELINGS OF ANXIETY AND REQUESTING FOR ATIVAN. ATIVAN PRN GIVEN ORDERED, 1MG/0.5ML GIVEN ORDERED, 1MG /0.5ML REST WASTED AND VERIFIED WITH ANOTHER RN. WILL CONTINUE TO MONITOR FOR EFFECTIVENESS.
[2019-01-15] MEDS: HYDROMORPHONE 1 MG/1 ML DISP.SYRIN IV PRN ×2 (01:00→06:57)
--- NOTE | 2019-01-15 01:00 | NUR ---
RN MS NOTES PATIENT COMPLAINT OF PAIN TO RIGHT BACK .KIDNEY AREA, REQUESTING FOR "PAIN SHOT" DILAUDID PRN OFFERED, PATIENT AGREED, VS WNL. PRN DILAUDID GIVEN ORDERED, STATES 7/10 PAIN RATE ACHING, WILL CONTINUE TO MONITOR FOR EFFECTIVENESS.
--- NOTE | 2019-01-15 02:00 | NUR ---
RN MS NOTES CALLED AND SPOKE TO ID, DR. NICK COLVIN [phone] REGARDING CLARIFICATION OF ANTIBIOTIC ANCEF. MADE MD AWARE OF PHARMACY RECOMMENDATION , ALLERGIES TO PCN AND RECOMMENDATION FOR ROCEPHIN, PER MD AWARE OF PCN ALLERGY AND MAY GIVE ANTIBIOTIC ORDERED THAT PATIENT ACKNOWLEDGES MEDICATION AND PER MD HAS A HISTORY OF BEING ON KEFLEX, ORDER NOTED VERIFED AND READ BACK. CLARIFIED WITH ECOLOGICAL TECHNICAL OFFICER PHARMACY
[2019-01-15] MEDS: IV NS 0.9% 1,000 ML IV PRN (03:42)
[2019-01-15] MEDS: CEFAZOLIN 1 GM in IV D5W 50 ML IV SCH ×2 (05:00→08:24)
[2019-01-15] MEDS ORDERED: CEFAZOLIN 500 MG VIAL IV SCH (05:00)
--- NOTE | 2019-01-15 05:00 | NUR ---
rn ms notes unable to administer ancef iv abx as ordered at this time , per warehouse trainer medication is unavailable to follow up in am with pharmacy.
--- NOTE | 2019-01-15 06:33 | NUR ---
RN MS CLOSING NOTES PATIENT IN BED AWAKE ALERT AND ORIENTED X4, RESPIRATIONS EVEN AND UNLABORED WITH EQUAL RISE AND FALL OF CHEST, COMPLAINTS OF PAIN TO RIGHT BACK KIDNEY AREA. MANAGED WITH PAIN MEDICATION THROUGHOUT SHIFT, VS TAKEN WNL, IV SITE TO LEFT FA #22G INTACT AND PATENT, NO REDNESS, NO INFILTRATION PRESENT, IVF RUNNING ORDERED, CALL LIGHT AND KEPT WITHIN REACH, SAFETY PRECAUTIONS IN PLACE, LOW BED AND LOCKED, FLUIDS OFFERED ALL NEEDS ATTENDED AT THIS TIME WILL CONTINUE TO MONITOR ATTEND TO NEEDS AND ENDORSE TO NEXT SHIFT.
[2019-01-15 06:43] LABS: CALCIUM, SERUM 8.9 mg/dL (8.5-10.1); CREATININE 1.4 mg/dL (0.6-1.3); POTASSIUM 4.5 mmol/L (3.5-5.1)
--- NOTE | 2019-01-15 06:57 | NUR ---
RN MS NOTES PATIENT COMPLAIN OF PAIN TO RIGHT BACK 7/10 ACHING , REQUESTING FOR PAIN MEDICATION " DILAUDID" VS WNL PRN GIVEN ORDERED, WILL CONTINUE TO MONITOR FOR EFFECTIVENESS
--- NOTE | 2019-01-15 07:09 | NUR ---
RN MS NOTES CALLED AND SPOKE TO PHARMACY REGARDING ANCEF NOT BEING AVAILBLE PER PHARM UNDO NON ADMIN FOR ADMINISTRATION AND THEY WILL SEND MEDICATION. WILL ENDORSE TO NEXT SHIFT.
--- NOTE | 2019-01-15 07:36 | NUR ---
MS RN NOTE PATIENT IN BED RESTING COMFORTABLY. PATIENT IN NO ACUTE DISTRESS. PATIENT BREATHING ON ROOM AIR. PATIENT BREATHING IS EVEN AND UNLABORED. PATIENT IN NO PAIN AT THIS TIME. NO FACIAL GRIMACE. PATIENT BED IS LOCKED AND IN LOWEST POSITION. CALL LIGHT WITHIN REACH. WILL CONTINUE TO MONITOR.
--- NOTE | 2019-01-15 08:12 | NUR ---
MS RN NOTE PATIENT TO RECEIVE 1GM CEFAZOLIN IV. CALLED DR. NICK COLVIN TO CONFIRM MEDICATION TO BE GIVEN TO PATIENT. MD AWARE OF ALLERGY TO PENICILLINS. DR. COLVIN STATES PATIENT WAS ON KEFLIX PRIOR, AND CONTINUE TO ADMINISTER THE CEFAZOLIN. DR. COLVIN SPOKE WITH THE PATIENT AND PATIENT STATES SHE WANTS TO RECEIVE MEDICATION. WILL CONTINUE TO MONITOR.
[2019-01-15 08:27] VITALS: BP 137/74
--- NOTE | 2019-01-15 09:00 | NUR ---
MS RN NOTES PATIENT TOLERATED IV ANTIBIOTIC CEFAZOLIN 1GM WELL. PATIENT IN NO ACUTE DISTRESS. NO SOB NOTED. PATIENT STATES SHE FEELS GOOD. PATIENT BREATHING IS EVEN AND UNLABORED. WILL CONTINUE TO MONITOR.
[2019-01-15] MEDS: LORAZEPAM INJ 2 MG/ML VIAL IV PRN (09:37)
[2019-01-15] MEDS ORDERED: HYDROMORPHONE 1 MG/1 ML DISP.SYRIN IM ONE (12:00)
--- NOTE | 2019-01-15 14:00 | NUR ---
MS AUTOMOTIVE SPECIALTY TECHNICIAN NOTE PATIENT MEDICALLY STABLE. PATIENT IN NO ACUTE DISTRESS. PATIENT BREATHING ON ROOM AIR. PATIENT BREATHING IS EVEN AND UNLABORED. NO SOB NOTED. VITAL SIGNS WNL. PATIENT WAS KEPT CLEAN, DRY, AND COMFORTABLE DURING MY SHIFT. ALL NURSING NEEDS MET. VERBALIZED DC INSTRUCTIONS TO PATIENT. PATIENT MADE AWARE AND COMPREHENDS DC INSTRUCTIONS. PATIENT SKIN ASSESSED. NO NEW SKIN BREAKDOWN NOTED. IV REMOVED. ID BAND REMOVED. PATIENT GOING BACK TO [facility]. REPORT GIVEN TO RUSLAN GAMBOA. REPORT GIVEN TO EMT. JESICA ACOSTA NP, CALLED [facility] TO INFORM THEM OF MEDICATION FOR PAIN FOR PATIENT. PATIENT SIGNED BELONGINGS LIST AND IN CHART. PATIENT SIGNED DC PACKET AND IN CHART. DC PACKET GIVEN TO PATIENT. PATIENT BELONGINGS WITH PATIENT. MD MADE AWARE OF DISCHARGE.
[2019-01-16 09:11] LABS: *SPE A/G RATIO 1.8 (0.7-1.7); *SPE ALBUMIN 3.5 g/dL (2.9-4.4); *SPE ALPHA-1-GLOBULIN 0.2 g/dL (0.0-0.4); *SPE ALPHA-2-GLOBULIN 0.5 g/dL (0.4-1.0); *SPE BETA GLOBULIN 0.8 g/dL (0.7-1.3); *SPE M-SPIKE Not Observed g/dL (Not Observed); *SPEGAMMA GLOBULIN 0.4 g/dL (0.4-1.8)
== END 2019-01-15 18:42 | DRG 690 ==
LOC: ER 22:51 → MED 01-12 03:14
PROVIDERS: ADMIT Nurse Practitioner Acute Care; ATTEND Nurse Practitioner Acute Care
DX: N10 Acute pyelonephritis (principal); E44.1 Mild protein-calorie malnutrition; N13.30 Unspecified hydronephrosis; I12.9 Hypertensive chronic kidney disease with stage 1 through stage 4 chronic kidney disease, or unspecified chronic kidney disease; N18.9 Chronic kidney disease, unspecified; K59.00 Constipation, unspecified; N17.9 Acute kidney failure, unspecified; Z88.0 Allergy status to penicillin; B96.20 Unspecified Escherichia coli [E. coli] as the cause of diseases classified elsewhere; N39.0 Urinary tract infection, site not specified; E11.22 Type 2 diabetes mellitus with diabetic chronic kidney disease; F41.9 Anxiety disorder, unspecified; Z93.6 Other artificial openings of urinary tract status; Z92.3 Personal history of irradiation; Z92.21 Personal history of antineoplastic chemotherapy; Z90.710 Acquired absence of both cervix and uterus; Z90.49 Acquired absence of other specified parts of digestive tract; Z87.442 Personal history of urinary calculi; Z87.440 Personal history of urinary (tract) infections; Z85.048 Personal history of other malignant neoplasm of rectum, rectosigmoid junction, and anus; Z83.3 Family history of diabetes mellitus; Z82.49 Family history of ischemic heart disease and other diseases of the circulatory system; Z80.0 Family history of malignant neoplasm of digestive organs; K83.8 Other specified diseases of biliary tract; F32.9 Major depressive disorder, single episode, unspecified; E87.5 Hyperkalemia; E66.9 Obesity, unspecified; Z68.28 Body mass index [BMI] 28.0-28.9, adult; F39 Unspecified mood [affective] disorder; Z59.0 Homelessness; F90.9 Attention-deficit hyperactivity disorder, unspecified type
CPT/HCPCS: 36415; 71045-TC; 80048-TC; 80053-TC; 80061-TC; 80076-TC; 81000-TC; 82550-TC; 83690-TC; 83735-TC; 83970; 84100-TC; 84155; 84165; 84443-TC; 85025-TC; 87081-TC; 87086-TC; 87186-TC; 97116-TC; 97530-TC; A4216; G0378; J0690; J1170; J2060; J2185; J2270; J2405; J7030; J7060